=== PATIENT | female | born 1935 | race Asian ===

== ENCOUNTER 2017-10-20 20:53 | Emergency (ER) | payer OTHER, BC ==
[~2017-10-20] VITALS: Ht 170.2 cm; Wt 95.3 kg
[2017-10-20 23:25] VITALS: BP 178/74; TEMP 98.3
== END 2017-10-20 23:25 | disposition home or self-care (01) ==
LOC: ED 20:53
PROC: 2W3DX1Z Immobilization of Left Lower Arm using Splint (ICD-10-PCS; principal; 2017-10-20)
PROC: 2W3CX1Z Immobilization of Right Lower Arm using Splint (ICD-10-PCS; 2017-10-20)
DX: S00.83XA Contusion of other part of head, initial encounter (principal); M54.2 Cervicalgia; M25.532 Pain in left wrist; M25.531 Pain in right wrist; W01.198A Fall on same level from slipping, tripping and stumbling with subsequent striking against other object, initial encounter; Y92.89 Other specified places as the place of occurrence of the external cause
CPT/HCPCS: 36415; 80053; 85027; 96374; 96375; 99284; J1885; J2270; L3908

== ENCOUNTER 2018-02-10 13:05 | Outpatient (CLI) | payer OTHER, BC | END 2018-02-10 19:19 | disposition home or self-care (01) | LOC: MRI 13:05 | DX: M79.661 Pain in right lower leg (principal) ==

== ENCOUNTER 2018-02-22 09:45 | Outpatient (CLI) | payer OTHER, BC ==
[2018-02-22 10:07] LABS: PLATELET COUNT 138 K/uL (152-353)
== END 2018-02-22 20:14 | disposition home or self-care (01) ==
LOC: LABW 09:45
PROVIDERS: Internal Medicine Cardiovascular Disease
DX: I10 Essential (primary) hypertension (principal); R55 Syncope and collapse
CPT/HCPCS: 36415; 80053; 84443; 85027

== ENCOUNTER 2018-09-27 08:31 | Outpatient (CLI) | payer OTHER, BC | END 2018-09-27 19:17 | disposition home or self-care (01) | LOC: MAMMO 08:31 | DX: Z12.31 Encounter for screening mammogram for malignant neoplasm of breast (principal); N64.59 Other signs and symptoms in breast ==

== ENCOUNTER 2020-07-02 14:09 | Outpatient (CLI) | payer OTHER, BC | END 2020-07-02 20:33 | disposition home or self-care (01) | LOC: INF 14:09 | PROVIDERS: ATTEND Internal Medicine | DX: Z23 Encounter for immunization (principal) | CPT/HCPCS: 96372 ==

== ENCOUNTER 2020-07-24 13:30 | Outpatient (CLI) | payer OTHER, BC | END 2020-07-24 20:37 | disposition home or self-care (01) | LOC: INF | PROVIDERS: ATTEND Internal Medicine | DX: Z23 Encounter for immunization (principal) ==

== ENCOUNTER 2020-08-22 10:41 | Outpatient (CLI) | payer OTHER, BC | END 2020-08-22 22:57 | disposition home or self-care (01) | LOC: US 10:41 | PROVIDERS: ATTEND Internal Medicine | DX: I73.9 Peripheral vascular disease, unspecified (principal) ==

== ENCOUNTER 2021-06-22 14:02 | Outpatient (CLI) | payer OTHER, BC | END 2021-06-22 19:00 | disposition home or self-care (01) | LOC: US 14:02 | PROVIDERS: ATTEND Podiatrist Foot & Ankle Surgery | DX: I73.9 Peripheral vascular disease, unspecified (principal) ==